=== PATIENT | female | born 1950 | race Caucasian/White ===

== ENCOUNTER 2024-02-03 00:27 | Day surgery (SDC) | payer MEDICARE, BC, SELFPAY ==
[2024-01-25 09:10] VITALS: BMI 32.1
[2024-02-03 09:37] VITALS: BP 150/74; PULSE 88; RESP 18; TEMP 37; O2SAT 97
[2024-02-03] MEDS: LACTATED RINGERS 1,000 ML 150 ML IV CONT (09:40)
--- NOTE | 2024-02-03 09:47 | P.PNAN_ITS ---
Anes - Initial Pre Proc Eval Procedure: Operation Date: 02/03/24 11:00 Proposed Procedures p Screening Colonoscopy - Jeff Medellin MD Date/Time: 02/03/24 09:47 Surgeon: Jeff Medellin MD Pre Op Diagnosis: Neoplasm screening Patient Data Age: 73 Gender: F Height: 1.73 m Weight: 93.7 kg Last Vital Signs Temp 37.0 C 02/03/24 09:37 Pulse 88 02/03/24 09:37 Resp 18 02/03/24 09:37 BP 150/74 H 02/03/24 09:37 Pulse Ox 97 02/03/24 09:37 O2 Del Method Room Air 02/03/24 09:37 Allergies Allergy/AdvReac Type Severity Reaction Status Date / Time No Known Allergies Allergy Mild Verified 02/03/24 09:36 Home Medications Medication Instructions Recorded Confirmed Type losartan 50 mg tablet 50 mg PO DAILY 10/01/23 02/03/24 History metoprolol succinate 50 mg 50 mg PO DAILY 10/01/23 02/03/24 History tablet,extended release 24 hr raloxifene 60 mg tablet 60 mg PO DAILY 10/01/23 02/03/24 History biotin 10,000 mcg chewable tablet 5,000 mcg PO DAILY 01/25/24 02/03/24 History (Hair, Skin and Nails (biotin)) coQ10 (ubiquinol) 100 mg capsule 100 mg PO DAILY 01/25/24 02/03/24 History (Qunol Edgardo CoQ10) garlic 400 mg tablet,delayed 400 mg PO DAILY 01/25/24 02/03/24 History release multivitamin with minerals-folic 1 tablet PO DAILY 01/25/24 02/03/24 History acid 120 mcg chewable tablet (Adult Multivitamin Gummies) nutritional supplement-fiber oral 1 ea PO DAILY 01/25/24 02/03/24 History liquid Patient hx anesthesia problems: none Family hx anesthesia problems: none Results Review: All pre-operative results and documents have been reviewed as part of the pre- operative evaluation. [facility] Past Medical History Medical History Cancer CPAP (continuous positive airway pressure) dependence Hypertension Family History Family History Father Diabetes mellitus Hypertension Mother Cancer Heart disease Social History Social History Smoking status: Never smoker Second hand tobacco smoke exposure: No Alcohol intake: never Substance use: never Substance use type: does not use Do You Feel Safe in your Home?: Yes Lack of Transportation: No Lack of Food: Never True Current Housing: I Have Housing Concerned About Future Housing: No Difficulty Paying Gas/Electric Bills: No Difficulty Paying for Meds: No Currently Unemployed: No Living arrangements: with family Occupation/Education: retired Gender identity (if verbalized by the patient): Female Sexual Orientation (if Verbalized by the Patient): Straight or Heterosexual Spiritual care concerns: No Anes - Eval Final PreProcedure Day of Procedure 02/03/24 09:47 Patient weight: obese Heart: regular rate and rhythm Lungs: clear to auscultation Airway: Mallampati scale class II Neurological: alert and oriented Last oral intake: >/= 8 hours ASA classification: III Emergent: no Anesthetic plan: proceed Anesthesia type and monitoring: general GIVS Results Review: All pre-operative results and documents have been reviewed as part of the pre- operative evaluation. Informed Consent: The patient's anesthetic plan and its attendant risks and benefits were discussed with the patient/family/POA. Questions were solicited and answers provided to the satisfaction of the patient/family/POA.
--- NOTE | 2024-02-03 09:51 | PM.HPGS ---
History of Present Illness History of Present Illness Consent: Risks, benefits, and alternatives have been discussed and questions answered. Patient agrees to proceed with procedure. Chief complaint: Neoplasm screening Narrative: Sophia Ashraf is a 73 year old female here for screening colonoscopy, last one 11 years ago Review of Systems Review of Systems: All systems reviewed & are unremarkable except as noted in HPI and below PMFSH Past Medical History Medical History (Updated 02/03/24 @ 09:51 by Jeff Medellin MD) Cancer Colon cancer screening CPAP (continuous positive airway pressure) dependence Hypertension Family History Family History Father Diabetes mellitus Hypertension Mother Cancer Heart disease Social History Social History Smoking status: Never smoker Second hand tobacco smoke exposure: No Alcohol intake: never Substance use: never Substance use type: does not use Do You Feel Safe in your Home?: Yes Lack of Transportation: No Lack of Food: Never True Current Housing: I Have Housing Concerned About Future Housing: No Difficulty Paying Gas/Electric Bills: No Difficulty Paying for Meds: No Currently Unemployed: No Living arrangements: with family Occupation/Education: retired Gender identity (if verbalized by the patient): Female Sexual Orientation (if Verbalized by the Patient): Straight or Heterosexual Spiritual care concerns: No Meds Home Medications and Allergies Home Medications Medication Instructions Recorded Confirmed Type losartan 50 mg tablet 50 mg PO DAILY 10/01/23 02/03/24 History metoprolol succinate 50 mg 50 mg PO DAILY 10/01/23 02/03/24 History tablet,extended release 24 hr raloxifene 60 mg tablet 60 mg PO DAILY 10/01/23 02/03/24 History biotin 10,000 mcg chewable tablet 5,000 mcg PO DAILY 01/25/24 02/03/24 History (Hair, Skin and Nails (biotin)) coQ10 (ubiquinol) 100 mg capsule 100 mg PO DAILY 01/25/24 02/03/24 History (Qunol Edgardo CoQ10) garlic 400 mg tablet,delayed 400 mg PO DAILY 01/25/24 02/03/24 History release multivitamin with minerals-folic 1 tablet PO DAILY 01/25/24 02/03/24 History acid 120 mcg chewable tablet (Adult Multivitamin Gummies) nutritional supplement-fiber oral 1 ea PO DAILY 01/25/24 02/03/24 History liquid Allergies Allergy/AdvReac Type Severity Reaction Status Date / Time No Known Allergies Allergy Mild Verified 02/03/24 09:36 Vital Signs Vital Signs - 24 hr 02/03/24 09:37 Temperature 98.6 F Pulse Rate 88 Respiratory Rate 18 Blood Pressure 150/74 H Pulse Oximetry 97 Oxygen Delivery Room Air Exam Const: General: comfortable and no acute distress HENMT: Face/Nose/Sinus: Normal nares present Eyes: General: appearance normal, both eyes and all related structures Neck: Neck: no JVD Resp: Auscultation: clear to auscultation bilaterally Cardio: Rate: regular rate Rhythm: regular rhythm GI: Inspection: non-distended GI Palp: Yes Soft to palpation Skin: General skin exam: normal color Neuro: General: gait normal Speech: normal speech Extrem: General: normal to inspection Psych: Mental Status: mental status grossly normal Assessment and Plan Assessment and plan (1) Colon cancer screening: Code(s): Z12.11 - Encounter for screening for malignant neoplasm of colon Status: Acute Assessment and Plan: colonoscopy
[2024-02-03 10:05] VITALS: BP 129/65; PULSE 85; RESP 20; O2SAT 96
[2024-02-03 10:15] VITALS: BP 122/66; PULSE 86; RESP 20; O2SAT 96
[2024-02-03 10:25] VITALS: BP 136/83; PULSE 78; RESP 20; O2SAT 100
== END 2024-02-03 10:31 | disposition home or self-care (01) ==
PROVIDERS: PCP Family Medicine; Referring Provider Nurse Practitioner; Visit Provider Internal Medicine Gastroenterology
PROC: 0DJD8ZZ Inspection of Lower Intestinal Tract, Via Natural or Artificial Opening Endoscopic (ICD-10-PCS; CPT 45378; principal; 2024-02-03 11:00)
DX: Z12.11 Encounter for screening for malignant neoplasm of colon (principal); I10 Essential (primary) hypertension; E66.9 Obesity, unspecified; Z68.31 Body mass index [BMI] 31.0-31.9, adult; Z79.810 Long term (current) use of selective estrogen receptor modulators (SERMs); Z99.89 Dependence on other enabling machines and devices; Z85.9 Personal history of malignant neoplasm, unspecified; Z80.9 Family history of malignant neoplasm, unspecified; Z82.49 Family history of ischemic heart disease and other diseases of the circulatory system
CPT/HCPCS: G0105; J2704; J7120

== ENCOUNTER 2024-03-24 09:19 | Outpatient (CLI) | payer MEDICARE, BC, SELFPAY ==
[2024-03-24 10:11] LABS: Alanine Aminotransferase 25 U/L (6-35); Albumin Level 4.4 g/dL (3.5-5.1); Alkaline Phosphatase 52 U/L (38-126); Anion Gap 7 mmol/L (4-12); Aspartate Amino Transferase 31 U/L (14-36); Bilirubin,Total 0.7 mg/dL (0.2-1.3); Blood Urea Nitrogen 19 mg/dL (7-17); Calcium 9.3 mg/dL (8.4-10.2); Carbon Dioxide 26 mmol/L (22-30); Chloride 106 mmol/L (98-107); Cholesterol 201 mg/dL (0-200); Estimated Glomerular Filt Rate > 60; Glucose 95 mg/dL (65-110); HDL Direct 59 mg/dL; Sodium 139 mmol/L (137-145); Triglycerides 134 mg/dL (<150)
[2024-03-24 10:22] LABS: LDL Cholesterol Direct 95 mg/dL
[2024-03-24 11:44] LABS: Hemoglobin A1C 5.8 % (<5.7)
== END 2024-03-24 09:20 | disposition home or self-care (01) ==
PROVIDERS: PCP Family Medicine; Referring Provider Internal Medicine Cardiovascular Disease; Visit Provider Student in an Organized Health Care Education/Training Program
DX: I10 Essential (primary) hypertension (principal); Z13.1 Encounter for screening for diabetes mellitus; Z13.220 Encounter for screening for lipoid disorders
CPT/HCPCS: 36415; 80053; 80061; 83036

== ENCOUNTER 2024-09-06 07:30 | Outpatient (CLI) | payer MEDICARE, BC, SELFPAY ==
--- OUTSIDE RECORDS SUMMARY | 2024-09-06 07:35 | XMS_ITS | Data Portability ---
Author Organization [facility], Main Office Address [address] [place] [address] Care Team Providers Care Coin Counter And Wrapper Name Role Phone KIMBERLY JAMES Primary Care Provider KIMBERLY JAMES Referring Provider [phone] Assessment No assessment recorded. Plan of Treatment Reminders Order Date Submit Date Provider Last Modified By Organization Details Last Modified Time Details Appointments None recorded. Lab None recorded. Referral None recorded. Procedures None recorded. Surgeries None recorded. Imaging XR, shoulder, 2 or more view 2022 023 [facility], [address] [place] [address] [place], [address], 3 12:20:28 Medication Orders ciprofloxac in 500 mg tablet 2023 024 [facility] #[id number], [address], [place], [place], [id number], 4 09:55:22 promethazin e-DM 6.25 mg-15 mg/5 mL oral syrup 2023 024 [facility] #[id number], [address], [place], [place], [id number], 4 09:55:47 prednisone 20 mg tablet 2022 023 [facility] #[id number], [address], [place], [place], [id number], 3 11:32:19 Depo-Medrol 80 mg/mL suspension for injection 2022 023 [email or web address] 11 Not available 3 08:49:46 cyclobenzap rine 5 mg tablet 2022 023 [facility] #[id number], [address], [place], [place], [id number], 3 11:30:12 Patient TargetsNo targets recorded. Patient InstructionsNo instructions recorded. Reason for Referral None Reported. Results Created Date Observation Date Name Description Value Unit Range Abnormal Flag Note LastModifiedBy Organization Detail LastModifiedTime 11/19/19 22 11/18/2021 COMPR EHENS GENNARO METAB OLIC PANEL sodium 138 mmol/ L 137-14 5 Not Available [facility] (Lab) [address] [place], [address], 11/18/2021 13:21:12 11/19/19 22 11/18/2021 COMPR EHENS GENNARO METAB OLIC PANEL potassium 4.2 mmol/ L 3.5-5. 1 Not Available [facility] (Lab) [address] [place], [address], 11/18/2021 13:21:12 11/19/19 22 11/18/2021 COMPR EHENS GENNARO METAB OLIC PANEL chloride 103 mmol/ L 98-107 Not Available [facility] (Lab) [address] [place], [address], 11/18/2021 13:21:12 11/19/19 22 11/18/2021 COMPR EHENS GENNARO METAB OLIC PANEL carbon dioxide 26 mmol/ L 22-30 Not Available [facility] (Lab) [address] [place], [address], 11/18/2021 13:21:12 11/19/19 22 11/18/2021 COMPR EHENS GENNARO METAB OLIC PANEL anion gap 13.2 mmol/ L 14-22 low Not Available [facility] (Lab) [address] [place], [address], 11/18/2021 13:21:12 11/19/19 22 11/18/2021 COMPR EHENS GENNARO METAB OLIC PANEL glucose 91 mg/dL 70-99 Not Available [facility] (Lab) [address] [place], [address], 11/18/2021 13:21:12 11/19/19 22 11/18/2021 COMPR EHENS GENNARO METAB OLIC PANEL BUN 21 mg/dL 8-19 high Not Available [facility] (Lab) [address] [place], [address], 11/18/2021 13:21:12 11/19/19 22 11/18/2021 COMPR EHENS GENNARO METAB OLIC PANEL creatinine 0.82 mg/dL 0.66-1 .25 Not Available [facility] (Lab) [address] [place], [address], 11/18/2021 13:21:12 11/19/19 22 11/18/2021 COMPR EHENS GENNARO METAB OLIC PANEL GFR >60 Refer ence Range : [place] GFR Healt hy Adult : >60 mL/mi n/1.7 3 m2 Chron ic Kidne y Disea se: 15-60 mL/mi n/1.7 3 m2 Kidne y Failu re: <15/m L/min /1.73 m2 www.n iddk. nih.g ov The MDRD study equat ion has not been valid ated in child kirt <18 years of age; pregn ant women ; the elder ly >85 years of age; or in some racia l or ethni c subgr oups, such as Hispa nics. Outsi de the valid ated morris eters , estim ated GFR is less accur ate, requi ring clini alejo judgm ent on a case- by-ca se basis . Clini alejo inter preta tion for other races and ages must be made by the clini sherley. The MDRD study equat ion has not been valid ated for the evalu ation of serum creat inine relat ed to nutri jerad l statu s or medic ation usage . For perso ns <18 years of age, a pedia tric GFR stefaniau maximo is avail able on the [facility] websi te: https ://kobi w.ludivina ibarray.o rg/pr ofess ional s/kdo qi/gf r_cal culat or Not Available [facility] (Lab) [address] [place], [address], 11/18/2021 13:21:12 11/19/19 22 11/18/2021 COMPR EHENS GENNARO METAB OLIC PANEL alkaline phosphatase 52 U/L 38-126 Not Available [facility] (Lab) [address] [place], [address], 11/18/2021 13:21:12 11/19/19 22 11/18/2021 COMPR EHENS GENNARO METAB OLIC PANEL alanine aminotransfe rase 17 U/L 0-35 Not Available [facility] (Lab) [address] [place], [address], 11/18/2021 13:21:12 11/19/19 22 11/18/2021 COMPR EHENS GENNARO METAB OLIC PANEL aspartate aminotransfe rase 24 U/L 15-37 Not Available [facility] (Lab) [address] [place], [address], 11/18/2021 13:21:12 11/19/19 22 11/18/2021 COMPR EHENS GENNARO METAB OLIC PANEL bilirubin, total 1.00 mg/dL 0.20-1 .30 Not Available [facility] (Lab) [address] [place], [address], 11/18/2021 13:21:12 11/19/19 22 11/18/2021 COMPR EHENS GENNARO METAB OLIC PANEL calcium 9.5 mg/dL 8.4-10 .2 Not Available [facility] (Lab) [address] [place], [address], 11/18/2021 13:21:12 11/19/19 22 11/18/2021 COMPR EHENS GENNARO METAB OLIC PANEL total protein 6.9 g/dL 6.3-8. 2 Not Available [facility] (Lab) [address] [place], [address], 11/18/2021 13:21:12 11/19/19 22 11/18/2021 COMPR EHENS GENNARO METAB OLIC PANEL albumin 4.3 g/dL 3.0-4. 4 Not Available [facility] (Lab) [address] [place], [address], 11/18/2021 13:21:12 11/19/19 22 11/18/2021 COMPR EHENS GENNARO METAB OLIC PANEL globulin 2.6 g/dL 2.6-4. 2 Not Available [facility] (Lab) [address] [place], [address], 11/18/2021 13:21:12 11/19/19 22 11/18/2021 COMPR EHENS GENNARO METAB OLIC PANEL A/G ratio 1.7 ratio 1.0-2. 0 Not Available [facility] (Lab) [address] [place], [address], 11/18/2021 13:21:12 11/19/19 22 11/18/2021 LIPID PANEL cholesterol 201 mg/dL 140-19 9 high NIH ROBYN NSUS RECOM MENDA TION FOR VIJAYA STERO L: ADULT CHILD LOW RISK: <200 <170 BORDE RLINE : <200- 239 ----- HIGH RISK: >240 >200 Not Available [facility] (Lab) [address] [place], [address], 11/18/2021 13:20:13 11/19/19 22 11/18/2021 LIPID PANEL triglyceride s 94 mg/dL 0-150 NIH ROBYN NSUS REPOR T RECOM MENDA TION FOR TRIGL YCERI HAY: ADULT CHILD LOW RISK: <150 ----- BODER LINE: 150-1 99 ----- HIGH RISK: >200 ----- Not Available [facility] (Lab) [address] [place], [address], 11/18/2021 13:20:13 11/19/19 22 11/18/2021 LIPID PANEL HDL cholesterol 59 mg/dL 40- Not Available [facility] (Lab) [address] [place], [address], 11/18/2021 13:20:13 11/19/19 22 11/18/2021 LIPID PANEL LDL cholesterol, calculated 123 mg/dL 0-130 [facility] ROBYN NSUS REPOR T RECOM MENDA TIONS FOR LDL: ADULT CHILD LOW RISK <130 <110 (OPTI MAL LDL) <100 ----- SHARAD RLINE : 130-1 59 ----- HIGH RISK: >160 >130 A TRIGL YCERI DE RESUL T >400 INVAL IDATE S THE CALCU LATIO N FOR LDL FRACT IONAT ION - THE LDL RESUL T WILL NOT BE REPOR GAYATHRI. Not Available [facility] (Lab) [address] [place], [address], 11/18/2021 13:20:13 11/18/19 22 11/17/2021 XR, hand, 3 or more view No observ ation record ed. [id number] Not Available 06/03/2022 14:19:47 11/18/19 XR, hand, 3 or more view [facility] [address] [place] [address] Patien t Name: SOPHIA ROSENTHAL Access ion #: [id number] Sex: F : 1950 0 Locati on: RA2 Attend ing Physic sina: KIMBERLY YODER Orderi Physic sina: KIMBERLY YODER Exam Date: 1:38 PM Exam Name: XR HAND LT 3V Admitt ing Diagno sis(es ): RADIOL OGY REPORT - FINAL EXAM: XR HAND LT 3V HISTOR Y: pain 71-yea r-old female with left hand pain, no known injury . COMPAR GLADIS: None availa ble. TECHNI QUE: Three views of the left hand were perfor med. FINDIN GS: No acute fractu re or disloc ation are identi fied about the left hand. 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 There is mild to modera te osteoa rthrit is of the IP joints of the finger s and trisca phe joint. IMPRES YUNIOR: Page 1 of 2 [facility] Patien t Name: SOPHIA ROSENTHAL Access ion #: [id number] Sex: F : 1950 0 Exam Date: 1:38 PM Exam Name: XR HAND LT 3V Admitt ing Diagno sis(es ): Osteoa rthrit is of the left hand and wrist withou t eviden ce of fractu re. This is most severe at the 1st CMC joint. Create d and electr onical ly signed by: Mina parish MD Signed Date: 4:17 PM (CT) Dictat ed by: Mina parish MD DD: 4:17 PM (CT) DT: 4:17 PM (CT) Page 2 of 2 [id number] [facility] (Imaging) [address] [place], [address], 06/03/2022 14:19:47 12/16/19 22 12/15/2021 imagi ng/di agnos tic resul t No observ ation record ed. [id number] [facility] [address], [place], [address], 06/03/2022 14:19:47 12/16/19 22 12/15/2021 imagi ng/di agnos tic resul t No observ ation record ed. [id number] [facility] [address] [facility], [place], [address], 06/03/2022 14:19:47 12/24/19 22 12/23/2021 imagi ng/di agnos tic resul t No observ ation record ed. [id number] [facility] [address], [place], [address], 06/03/2022 14:19:47 12/30/19 22 12/23/2021 imagi ng/di agnos tic resul t No observ ation record ed. [id number] [facility] [address] [facility] [address], [place], [address], 06/03/2022 14:19:47 03/09/20 22 03/09/2022 imagi ng/di agnos tic resul t No observ ation record ed. [id number] [facility] Add On [facility] Orders [address] [place], [address], 06/03/2022 14:19:47 08/07/19 23 08/06/2022 XR, shoul andre, 2 or more view No observ ation record ed. [email or web address] [facility] [address] [place], [address], 08/06/2022 15:11:26 08/07/19 23 08/06/2022 XR, shoul andre, 2 or more view No observ ation record ed. [email or web address] [facility] [address] [place], [address], 08/06/2022 15:11:07 03/12/20 23 03/12/2023 MAMMO , scree rodríguez, bilat eral No observ ation record ed. [email or web address] [facility] [address] [place], [address], 04/28/2023 09:08:34 03/22/20 24 03/18/2024 imagi ng/di agnos tic resul t No observ ation record ed. [facility] [address] [place], [address], 03/22/2024 16:13:21 Result Notes None recorded. Problems Name Problem SNOMED Code Status Onset Date Resolution Date Notes Provider Name and Address Organization Details Recorded Time Cyst of left breast 97043934599 973777 Active Not Available [facility] 4 05:06:08 Complaini ng of a rash Completed Not Available [facility] 3 14:17:02 Mammograp hy abnormal 658143317 Active Not Available [facility] 4 05:06:08 Plantar fasciitis 911508868 Active Not Available [facility] 4 05:06:09 Sinusitis 12637662 Active 2017 Not Available [facility] 4 05:06:09 Cardiac valve prolapse 158741843 Active 2018 Not Available [facility] 4 05:06:09 Basal cell carcinoma of lateral canthus 270558430 Active 2018 Not Available [facility] 4 05:06:09 Dysuria 06023994 Completed Not Available [facility] 3 14:17:02 Shoulder strain 902379448 Active 2022 Not Available [facility] 4 05:06:09 Contact dermatiti s 10187779 Active 2022 Not Available [facility] 4 05:06:09 Acute urticaria 637536272 Active 2022 Not Available [facility] 4 05:06:09 Upper respirato ry infection 31132694 Active 2022 Not Available [facility] 4 05:06:09 Problem Notes None recorded. Procedures Surgical History Date Name Laterality Status Provider Name and Address Organization Details Recorded Time 02/08/20 18 bone density scan completed Not Available [facility] 06/03/2022 14:15:09 11/04/19 13 colonoscopy completed Not Available [facility] 06/04/19 23 14:15:09 Imaging Results None recorded. Procedure Notes None recorded. Medical Equipment None Reported. Allergies No known drug allergies Medications Name Sig Start Date Stop Date Status Note LastModified by Organization Details LastModified Time losartan 50 mg tablet TAKE 1 TABLET BY MOUTH EVERY DAY active Not Available Not Available No t Available promethazin e-DM 6.25 mg-15 mg/5 mL oral syrup TAKE 5 ML BY MOUTH EVERY 4 HOURS FOR 10 DAYS NEEDED active Not Available Not Available No t Available prednisone 10 mg tablet TAKE 4 TABLET BY MOUTH X 3 DAYS 3 TABLET X 3 DAYS 2 TABLET X 3 DAYS 1 TABLET X 3 DAYS active Not Available Not Available No t Available paroxetine 10 mg tablet 09/03 completed Not Available Not Available Not Available azithromyci n 250 mg tablet TAKE 2 TABLETS (500 MG) BY ORAL ROUTE ONCE DAILY FOR 1 DAY THEN 1 TABLET (250 MG) BY ORAL ROUTE ONCE DAILY FOR 4 DAYS active Not Available Not Available No t Available metoprolol succinate ER 50 mg tablet,exte nded release 24 hr active Not Available Not Available Not Available valacyclovi r 1 gram tablet Take 1 tablet every 8 hours by oral route for 7 days. 08/09 completed Not Available Not Available Not Available hydrocodone 5 mg-acetamin ophen 325 mg tablet 09/03 completed Not Available Not Available Not Available Medrol (Tres) 4 mg tablets in a dose pack TAKE DIRECTED BY MOUTH 11/13 completed Not Available Not Available Not Available prednisone 20 mg tablet 2 tabs po twice daily for 2 days ; 1 tab twice daily for 5 days ;0.5 tab twice daily for 2 days ; 0.5 tab for 1day. TAKE 2ND DOSE EVERY DAY AT NOON active Not Available Not Available No t Available promethazin e 6.25 mg-codeine 10 mg/5 mL syrup Take 5 mL every 6 hours by oral route at bedtime. 07/08 completed Not Available Not Available Not Available triamcinolo ne acetonide 0.5 % topical ointment 09/03 completed Not Available Not Available Not Available ciprofloxac in 500 mg tablet TAKE 1 TABLET BY MOUTH EVERY 12 HOURS FOR 10 DAYS active Not Available Not Available No t Available triamcinolo ne acetonide 0.1 % topical cream APPLY THIN LAYER TOPICALLY TO THE AFFECTED AREA TWICE DAILY active Not Available Not Available No t Available Depo-Medrol 80 mg/mL suspension for injection Take 1 mL every day by injection route for 1 day. 2022 active Not Available Not Available Not Avai lable Kenalog 40 mg/mL suspension for injection 09/03 completed Not Available Not Available Not Available triamcinolo ne acetonide 0.1 % dental paste 02/20 completed Not Available Not Available Not Available raloxifene 60 mg tablet Take 1 tablet every day by oral route. active Not Available Not Available No t Available diclofenac sodium 75 mg tablet,nilay yed release Take 1 tablet 2 TIMES A DAY by oral route with food active Not Available Not Available No t Available montelukast 10 mg tablet TAKE 1 TABLET DAILY active Not Available Not Available No t Available metoprolol succinate ER 25 mg tablet,exte nded release 24 hr 08/06 completed Not Available Not Available Not Available Vitamin D2 1,250 mcg (50,000 unit) capsule Take 1 capsule twice a week by oral route. 02/20 completed Not Available Not Available Not Available fluticasone propionate 50 mcg/actuati on nasal spray,suspe nsion [place] 2 sprays every day by intranasa l route at dinner. 07/08 completed Not Available Not Available Not Available Estrace 0.01% (0.1 mg/gram) vaginal cream 09/03 completed Not Available Not Available Not Available cyclobenzap rine 5 mg tablet TAKE 1 TABLET BY MOUTH EVERY DAY AT BEDTIME active Not Available Not Available No t Available triamcinolo ne acetonide 0.05 % topical ointment Apply by topical route. bid 09/03 completed Not Available Not Available Not Available cholecalcif kenney (vitamin D3) 250 mcg (10,000 unit) capsule Take by oral route. 2018 active Not Available Not Available Not Avai lable Fluzone High-Dose 2019-20 (PF) 180 mcg/0.5 mL intramuscul ar syringe PHARMACIS T ADMINISTE RED IMMUNIZAT ION ADMINISTE RED AT TIME OF DISPENSIN G 02/20 completed Not Available Not Available Not Available BinaxNOW COVID-19 Ag Self Test kit Use as Directed on the Package 08/06 completed Not Available Not Available Not Available Vitals Date Recorded Body height Body mass index (BMI) Body weight Body temperature Heart rate Oxygen saturation Oxygen saturation in Arterial blood by Pulse oximetry Systolic blood pressure Diastolic blood pressure Provider Name and Address Organization Details Last Updated DateTime 4 172.72 cm 31.5 kg/m2 70851.0 2 g 97.1 [degF] 89 /min 96 % 96 % 153 mm[Hg] 82 mm[Hg] Marlen Mercado MA [facility] [employer] [facility] 4 09:17:23 Date Recorded Body height Body mass index (BMI) Body weight Body temperature Heart rate Oxygen saturation Oxygen saturation in Arterial blood by Pulse oximetry Systolic blood pressure Diastolic blood pressure Provider Name and Address Organization Details Last Updated DateTime 3 172.72 cm 31.3 kg/m2 33982.0 3 g 97.3 [degF] 83 /min 97 % 97 % 158 mm[Hg] 82 mm[Hg] TIFFANY Roach [facility] [employer] [facility] 3 11:16:54 Date Recorded Body mass index (BMI) Body height Oxygen saturation Oxygen saturation in Arterial blood by Pulse oximetry Heart rate Body temperature Body weight Systolic blood pressure Diastolic blood pressure Provider Name and Address Organization Details Last Updated DateTime 2 29.5 kg/m2 172.72 cm 97 % 97 % 97 /min 97 [degF] 80994.9 2 g 164 mm[Hg] 80 mm[Hg] Not Available [facility] 3 14:15:22 Social History None recorded. Functional Status Question Answer Note LastModified by Organizat ion Details LastModified Time What is your occupation? retired [id number] Information not available 06/03/2022 Mental Status None recorded. Family History Nothing Reported. Medical History No medical history recorded. Gynecological HistoryNo gynecological history recorded. Obstetrics History GPAL:G 0 P 0 0 0 0 Immunizations Vaccine Type Date Status Note Provider Nam e and Address Organization Details Recorded Time SARS-COV-2 (COVID-19) vaccine, UNSPECIFIED 1 completed Not Available [facility] 04/13/2023 05:06:09 SARS-COV-2 (COVID-19) vaccine, UNSPECIFIED 1 completed Not Available [facility] 04/13/2023 05:06:09 Influenza, high-dose, trivalent, PF 11/04/201 9 completed Not Available [facility] 04/13/2023 05:06:09 Influenza, high-dose, trivalent, PF 8 completed Not Available [facility] 04/13/2023 05:06:09 Influenza, split virus, quadrivalent, PF 6 completed Not Available [facility] 04/13/2023 05:06:09 zoster live 5 completed Not Available [facility] 04/13/2023 05:06:09 Past Encounters Encounter ID Performer Location Encounter Start Date Encounter Closed Date Diagnosis/Indication Diagnosis SNOMED-CT Code Diagnosis ICD10 Code Diagnosis Note [id number] Kimberly Green MD [facility] [address] [place] [address] [place] [address] 11/17/2021 00:00:00 11/17/2021 18:38:53 [id number] Kimberly Green MD [facility] [address] [place] [address] [place] [address] 08/06/2022 11:03:58 08/06/2022 11:38:45 Shoulder strain 872461136 S46.912A Contact dermatitis 92760 004 L25.9 Acute urticaria 35306163 9 L50.9 [id number] Kimberly Green MD [facility] [address] [facility] [place] [address] 04/08/2023 09:00:58 04/08/2023 09:57:44 Upper respiratory infection 20568471 J06.9 Health Concerns Section Related Observation LastModified by Organization Detai ls LastModified Time None Recorded Concern Status LastModified by Organization Details LastModified Time None Recorded Advance Directives Directive None Recorded Payers Encounter Date Sequence Insurance Name Policy Number Policy Trejo Covered Member ID Trejo Member ID Guarantor Name 08/06/2022 1 [place] Sophia Rosenthal [id number] Sophia Rosenthal 08/06/2022 2 [place] [id number] Sophia Rosenthal [id number] Sophia Gutiérrez [place] 04/08/2023 1 [place] Sophia Gutiérrez [place] [id number] Sophia K [place] 04/08/2023 2 [place] [id number] Sophia Gutiérrez [place] [id number] Sophia Gutiérrez [place] Notes Date Note Type Note Provider Name and Address Organization Details Recorded Time 08/06/2022 text/html left shoulder strain noticed about a month ago. also a rash left wrist forearm , itchy , has been working in yard RAUL Aguilar [address], [place], [address], [employer] 08/09/2022 09:18:48 04/08/2023 text/html has same thing, taking tumeric for left shoulder which is better RAUL Aguilar [address], [place], [address], [employer] 04/10/2023 17:36:48 OBGyn Episode No OBEpisode recorded.
--- OUTSIDE RECORDS SUMMARY | 2024-09-06 07:35 | XMS_ITS | CONTINUITY OF CARE DOCUMENT ---
Author Name lianna dsouza Address Unknown Organization [facility] Address [id number] [place] [address] [address] [place] [address] Phone [phone] Care Team Providers Care Silk Screen Cutter Name Role Phone Jer BRIGGS, Fariba Unavailable REBECA FONTAINE MD Unavailable REBECA FONTAINE MD Unavailable [phone] PROBLEMS Condition Status Date Provider Notes Palpitations active Ventura Esteban Mitral valve prolapse completed - Fariba Randle MD Snoring completed - Fariba Randle MD HTN essential--nl echo ef 60 %, 12/2021 active Fariba Randle MD ELISEO--mod, Autopap active Fariba Randle MD Obesity active Fariba Randle MD ENCOUNTERS Date Type Provider Location Encounter Diag nosis - In-person encounter Office Visit Fariba Randle MD [facility] - In-person encounter Office Visit Fariba Randle MD [facility] - In-person encounter Office Visit Fariba Randle MD [facility] - In-person encounter Office Visit Fariba Randle MD [facility] - In-person encounter Office Visit Fariba Randle MD [facility] Mitral valve prolapseSnoringHTN essential--nl echo ef 60%, SA--mod, AutopapObesity - In-person encounter Office Visit Fariba Randle MD [facility] HTN essential--nl echo ef 60%, 12/2021 VITAL SIGNS Date Observation Value Provider Body Mass Index (Ratio) 31.47 kg/m2 Edwar Randle MD blood pressure, diastolic 70 mm[Hg] Jessica nkLogkelly blood pressure, systolic 125 mm[Hg] Esperanza [facility] oxygen saturation, oximetry 99 % Jackie Virginia pulse rate 66 /min Jackie Roxy [facility] blood pressure, diastolic 70 mm[Hg] [facility], systolic 125 mm[Hg] Ker ri [place] weight E&M 207 [lb_av] Jackie Roxy [facility] height E&M 68 [in_i] Jackie Isiahnenfe [facility] Body Mass Index (Ratio) 32.99 kg/m2 Edwar Randle MD blood pressure, diastolic 78 mm[Hg] [facility], systolic 141 mm[Hg] [facility] [place] oxygen saturation, oximetry 97 % [facility] respiratory rate E&M 24 /min [facility] 97 /min [facility] weight E&M 217 [lb_av] [facility] height E&M 68 [in_i] [facility] Body Mass Index (Ratio) 31.62 kg/m2 Edwar Randle MD blood pressure, diastolic 81 mm[Hg] Li nkLogic blood pressure, systolic 154 mm[Hg] Esperanza kLogic blood pressure, cuff size regular Ja rret blood pressure, diastolic 81 mm[Hg] Sam leunget blood pressure, systolic 154 mm[Hg] Evita caldwell pulse rate 71 /min Henri y oxygen saturation, oximetry 98 % Henri respiratory rate E&M 12 /min Henri weight E&M 208 [lb_av] Henri height E&M 68 [in_i] Henri Body Mass Index (Ratio) 30.71 kg/m2 Edwar Randle MD blood pressure, diastolic 82 mm[Hg] [facility] acy [facility] blood pressure, systolic 149 mm[Hg] Sta [facility] oxygen saturation, oximetry 97 % Tiera Timo pulse rate 69 /min Tiera Timo respiratory rate E&M 16 /min Tiera D tomeka weight E&M 202 [lb_av] Tiera Timo height E&M 68 [in_i] Tiera Timo Body Mass Index (Ratio) 30.10 kg/m2 Edwar Randle MD blood pressure, diastolic 85 mm[Hg] [facility] ac[facility] blood pressure, systolic 155 mm[Hg] [facility] blood pressure, cuff size regular [facility] acy Timo pulse rate 96 /min Tiera Timo oxygen saturation, oximetry 97 % Tiera Timo respiratory rate E&M 16 /min Tiera D tomeka weight E&M 198 [lb_av] Tiera Timo height E&M 68 [in_i] Tiera Timo Body Mass Index (Ratio) 29.80 kg/m2 Edwar Randle MD blood pressure, diastolic 88 mm[Hg] Angelina Stein blood pressure, systolic 134 mm[Hg] Lang ceballos Eiml oxygen saturation, oximetry 97 % Miriam Stein pulse rate 89 /min Miriam shah height E&M 68 [in_i] Miriam shah weight E&M 196 [lb_av] Miriam shah respiratory rate E&M 16 /min Harleen Stein blood pressure, cuff size large Mi mayo Emil ALLERGIES No Known Drug Allergies HISTORY OF MEDICATION USE Medication Status Instructions Dates Provider Indications Com ments metoprolol succinate 50 mg tablet extended release 24 hr active TAKE 1 TABLET DAILY Ventura Mercermedzai losartan 50 mg tablet active TAKE 1 TAB LET EVERY DAY Ventura Ahmedzai metoprolol succinate 50 mg tablet extended release 24 hr completed Take 1 tablet by mouth once a day - Miriam Stein triamcinolone acetonide 0.1% cream completed - Ventura Palmerzapadma methylprednisolone 4 mg tablets,dose pack completed - Ventura Ahmedzai prednisone 10 mg tablet completed - Ventura Palmerzapadma raloxifene 60 mg tablet active Miriam Stein SOCIAL HISTORY Date Observation Value Provider smoking status Never smoker Ventura Esteban smoking status Never smoker Ventura Esteban smoking status Never smoker Ventura Esteban smoking status Never smoker Tiera Greenwood social history reviewed E&M revi ewed - no changes required Ventura Esteban smoking status Never smoker Tiera Greenwood social history reviewed E&M revi ewed - no changes required Ventura Esteban social history E&M S moking History: P alex has never smoked. Ventura Esteban smoking status Never smoker Miriam Wade social history reviewed E&M revi ewed - no changes required Ventura Ahmedzai INSURANCE PROVIDERS Payer name Policy type / Coverage type [employer]rose red constitution party ID [facility] [id number] 1 [place] MED[place] Medicare [id number] ADVANCE DIRECTIVES Name Date DISCUSSED - NO DECISION MADE TREATMENT PLAN Date Name Performer [id number],S, Ventura Ahmedza i [id number],S, Ventura Ahmedza i [id number],S, Ventura Ahmedza i [id number],S, Ventura Ahmedza i [id number],S, Ventura Ahmedza i [id number],S, Ventura Ahmedza i [id number],S, Ventura Ahmedza i [id number],W, Fariba Randle MD [id number],S, Ventura Ahmedza i [id number],S, Ventura Ahmedza i [id number],S, Ventura Ahmedza i Cardiology Fariba Randle MD Cardiology Fariba Randle MD Cardiology:This visi t has been a part of the consistent, comprehensive, and ongoing management of the chronic medical condition(s) listed above for the patient. Her updated medication list for this problem includes: Losartan 50 Mg Tablet (Losartan) ..... Take 1 tablet every day Metoprolol Succinate 50 Mg Tablet Extended Release 24 Hr (Metoprolol succinate) ..... Take 1 tablet daily BP today: 125/70 P rior BP: 141/78 (11/02/2023) Fariba Randle MD Cardiology Ventura Esteban Cardiology: H er updated medication list for this problem includes: Metoprolol Succinate 50 Mg Tablet Extended Release 24 Hr (Metoprolol succinate) ..... Take 1 tablet daily Ventura Ahmedzai Cardiology Ventura Ahmedzai Cardiology: H er updated medication list for this problem includes: Metoprolol Succinate 50 Mg Tablet Extended Release 24 Hr (Metoprolol succinate) ..... Take 1 tablet daily Losartan 50 Mg Tablet (Losartan) ..... Take 1 tablet by mouth once a day Ventura Ahmedzai Cardiology Ventura Ahmedzai Cardiology Ventura Ahmedzai Cardiology Ventura Ahmedzai Cardiology Ventura Ahmedzai Cardiology Ventura Ahmedzai Cardiology Ventura Ahmedzai Cardiology Ventura Ahmedzai Cardiology Ventura Ahmedzai Cardiology Ventura Ahmedzai Cardiology Ventura Ahmedzai Cardiology Ventura Ahmedzai Cardiology Fariba Randle MD Cardiology Ventura Ahmedzai Cardiology Ventura Ahmedzai Cardiology Ventura Ahmedzai Date Name COMPREHENSIVE METABO LIC PANEL, W/EGFR CBC (INCLUDES DIFF/P LT) HEMOGLOBIN A1c LIPID PANEL Sleep Study Home Holter Monitor 48 hr Complete Echo HISTORY OF PROCEDURES Procedure Date Procedure Name Provider Procedure Notes S tatus Complex e/m visit add on Fariba Randle MD completed Complex e/m visit add on Fariba Randle MD completed EKG Fariba Randle MD completed EKG Fariba Randle MD completed
[2024-09-06 11:15] LABS: Vitamin D 25 Hydroxy 78.3 ng/mL
== END 2024-09-06 07:31 | disposition home or self-care (01) ==
LOC: ANHLAB 07:32
PROVIDERS: PCP Family Medicine; Visit Provider Nurse Practitioner
DX: E55.9 Vitamin D deficiency, unspecified (principal)
CPT/HCPCS: 36415; 82306

== ENCOUNTER 2024-09-26 08:04 | Outpatient (CLI) | payer MEDICARE, BC, SELFPAY ==
[2024-09-26 08:42] LABS: Basophils Percent Auto 0.5 % (0.2-1.2); Eosinophils Absolute Auto 0.1 K/mm3 (0-0.3); Eosinophils Percent Auto 1.6 % (0-4.4); Hematocrit 42.5 % (37.0-47.0); Hemoglobin 13.9 g/dL (12.0-15.0); Immature Granulocyte Absolute 0.02 K/mm3 (0.00-0.031); Immature Granulocyte Percent A 0.4 % (0-0.5); Lymphocytes Absolute Auto 1.88 K/mm3 (0.9-3.2); Lymphocytes Percent Auto 33.2 % (18.3-44.2); Mean Corpuscular HGB Conc 32.7 g/dl (32-36); Mean Corpuscular Hemoglobin 32.3 pg (26-34); Mean Corpuscular Volume 98.6 fl (80-100); Mean Platelet Volume 10.5 fl (7.4-10.4); Monocytes Absolute Auto 0.6 K/mm3 (0.1-0.6); Monocytes Percent Auto 10.8 % (2.6-8.5); Neutrophils Percent Auto 53.5 % (45.5-73.1); Platelet Count Result 255 k/mm3 (150-375); Red Blood Count 4.31 M/mm3 (4.2-5.4); Red Cell Distribution Width 13.2 % (11.5-14.5); White Blood Count 5.7 K/mm3 (4.5-10.0)
[2024-09-26 08:59] LABS: Alanine Aminotransferase 23 U/L (6-35); Albumin Level 4.1 g/dL (3.5-5.1); Alkaline Phosphatase 41 U/L (38-126); Anion Gap 7 mmol/L (4-12); Aspartate Amino Transferase 35 U/L (14-36); Bilirubin,Total 0.7 mg/dL (0.2-1.3); Blood Urea Nitrogen 18 mg/dL (7-17); Calcium 9.3 mg/dL (8.4-10.2); Carbon Dioxide 26 mmol/L (22-30); Chloride 108 mmol/L (98-107); Cholesterol 195 mg/dL (0-200); Estimated Glomerular Filt Rate > 60; Glucose 96 mg/dL (65-110); HDL Direct 65 mg/dL; Potassium 4.1 mmol/L (3.4-5.0); Sodium 141 mmol/L (137-145); Total Protein 7.1 g/dL (6.3-8.2); Triglycerides 112 mg/dL (<150)
[2024-09-26 09:10] LABS: LDL Cholesterol Direct 82 mg/dL
[2024-09-26 09:48] LABS: Free T4 Free Thyroxine 1.13 ng/dL (0.78-2.19)
[2024-09-26 09:56] LABS: Hemoglobin A1C 5.6 % (<5.7)
== END 2024-09-26 08:05 | disposition home or self-care (01) ==
PROVIDERS: PCP Family Medicine; Visit Provider Student in an Organized Health Care Education/Training Program
DX: R73.03 Prediabetes (principal); I10 Essential (primary) hypertension; R53.83 Other fatigue; E78.5 Hyperlipidemia, unspecified
CPT/HCPCS: 36415; 80053; 80061; 83036; 84439; 84443; 85025